=== PATIENT | female | born 1970 | race Caucasian/White ===

== ENCOUNTER 2023-09-05 08:20 | Emergency (ER) | payer OTHER ==
[2023-09-05] MEDS ORDERED: Ondansetron PF 4 MG/2 ML Vial ONE (08:55)
[2023-09-05] MEDS ORDERED: Aspirin Chewable 81 MG TAB ONE (08:55)
[2023-09-05] MEDS ORDERED: Famotidine/PF 20 mg/2ml Vial ONE (08:56)
[2023-09-05 09:31] LABS: #Basophils 0.1 10x3/uL (0.0-0.2); #Eosinphils 0.4 10x3/uL (0.0-0.5); #Monocytes 0.9 10x3/uL (0.0-1.1); #Neutrophils 5.7 10x3/uL (1.5-8.4); %Basophils 0.8 % (0.0-2.0); %Eosinophils 4.3 % (0.0-6.0); %Lymphocytes 23.5 % (18.0-47.0); %Monocytes 9.9 % (0.0-10.0); %Neutrophils 61.3 % (40.0-75.0); Hematocrit 34.5 % (34.9-44.5); Mean Corpuscular Hemoglobin 20.6 pg (27.0-33.0); Mean Corpuscular Volume 71.1 fl (81.6-98.3); Mean Platelet Volume 8.5 fl (7.4-10.4); Platelet Count 455 10x3/uL (150-450); RBC Distribution Width 19.1 % (11.5-14.5); Red Blood Cell (RBC) Count 4.85 10x6/uL (3.90-5.03); White Blood Cell (WBC) Count 9.2 10x3/uL (3.5-10.5)
[2023-09-05 09:47] LABS: ALT (SGPT) 16 U/L (8-55); AST (SGOT) 14 U/L (5-34); Albumin 4.1 g/dL (3.5-5.0); Alkaline Phosphatase 55 U/L (40-110); Anion Gap 15 mmol/L (10-20); BUN (Urea Nitrogen) 12 mg/dL (9.8-20.1); Bilirubin, Total 0.3 mg/dL (0.2-1.2); Calc. Creatinine Clearance 0 mL/min (70-130); Calcium 9.3 mg/dL (7.8-10.44); Carbon Dioxide 22 mmol/L (22-29); Chloride 105 mmol/L (98-107); Estimated GFR 90; Glucose 87 mg/dL (70-105); Potassium 3.7 mmol/L (3.5-5.1); Protein, Total 7.1 g/dL (6.0-8.3); Sodium 138 mmol/L (136-145)
[2023-09-05 09:53] LABS: Troponin I Less than 0.010 ng/mL (< 0.028)
[2023-09-05] MEDS ORDERED: Lorazepam 0.5 MG TAB ONE (10:02)
[2023-09-05 10:10] LABS: SARS-CoV-2 NAA Rapid Test Not Detected (NotDetected)
[2023-09-05 10:20] LABS: BHCG - Serum Negative (NEGATIVE); Pregs Control Background? CLEAR/WHITE (CLR/WHITE); Pregs Control Bar Appear? YES (CONTROL BAR)
[2023-09-05 15:31] LABS: Anisocytosis SLIGHT = 6-15 cells (100X) (0-5/hpf); Hypochromia SLIGHT = 6-15 cells (100X) (0-5/hpf); Microcytosis SLIGHT = 6-15 cells (100X) (0-5/hpf); Poikilocytosis SLIGHT = 6-15 cells (100X) (0-5/hpf); Polychromasia SLIGHT = 2-3 cells (100X) (0-2/hpf)
[2023-09-05 15:32] LABS: Elliptocytes SLIGHT = 2-5 cells (100X) (0-1/hpf)
[2023-09-05 15:33] LABS: Tear Drops SLIGHT = 2-5 cells (100X) (0-1/hpf)
[2023-09-05 15:35] LABS: Platelet Adequacy Comment Appears Increased
== END 2023-09-05 11:33 | disposition home or self-care (01) ==
LOC: CSHERS 08:20
DX: J06.9 Acute upper respiratory infection, unspecified (principal); I50.9 Heart failure, unspecified; Z20.822 Contact with and (suspected) exposure to COVID-19
CPT/HCPCS: 71045; 80053; 83880; 84484; 84703; 85025; 93005; 96374; 96375; J2405; S0028

== ENCOUNTER 2024-10-07 16:36 | Emergency (ER) | payer MEDICAID, OTHER ==
[~2024-10-07 16:36] MED LIST: Iopamidol 300 61% 100 ML VIAL FS ONE
[2024-10-07] MEDS ORDERED: Prochlorperazine 10 MG/2 ML VIAL ONE (17:25)
[2024-10-07] MEDS ORDERED: diphenhydrAMINE 50 MG/ML VIAL ONE (17:25)
[2024-10-07] MEDS ORDERED: Dexamethasone 10 MG/ML VIAL ONE (17:25)
[2024-10-07] MEDS ORDERED: Acetaminophen 325 MG TAB ONE (17:26)
[2024-10-07] MEDS ORDERED: Famotidine/PF 20 mg/2ml Vial ONE (17:26)
[2024-10-07 17:32] LABS: #Basophils 0.07 10x3/uL (0.0-0.2); #Monocytes 0.81 10x3/uL (0.0-1.1); #Neutrophils 6.85 10x3/uL (1.5-8.4); %Basophils 0.7 % (0.0-2.0); %Lymphocytes 19.7 % (18.0-47.0); %Monocytes 8.2 % (0.0-10.0); Hematocrit 39.8 % (34.9-44.5); Mean Corpuscular HGB CONC 30.2 g/dL (32.0-36.0); Mean Platelet Volume 8.4 fL (7.4-10.4); Platelet Count 482 10x3/uL (150-450); RBC Distribution Width 20.5 % (11.5-14.5); Red Blood Cell (RBC) Count 5.45 10x6/uL (3.90-5.03); White Blood Cell (WBC) Count 9.93 10x3/uL (3.5-10.5)
[2024-10-07 17:43] LABS: ALT (SGPT) 26 U/L (8-55); AST (SGOT) 23 U/L (5-34); Albumin 4.1 g/dL (3.5-5.0); Alkaline Phosphatase 67 U/L (40-110); Anion Gap 17 mmol/L (10-20); BUN (Urea Nitrogen) 16 mg/dL (9.8-20.1); Bilirubin, Total 0.2 mg/dL (0.2-1.2); Calc. Creatinine Clearance 0 mL/min (70-130); Calcium 9.7 mg/dL (7.8-10.44); Carbon Dioxide 23 mmol/L (22-29); Chloride 102 mmol/L (98-107); Estimated GFR 57; Glucose 110 mg/dL (70-105); Lipase 32 U/L (8-78); Magnesium 2.1 mg/dL (1.6-2.6); Potassium 3.6 mmol/L (3.5-5.1); Protein, Total 8.1 g/dL (6.0-8.3); Sodium 138 mmol/L (136-145)
[2024-10-07] MEDS ORDERED: Ketorolac Tromethamine 30 MG (1 mL) VIAL ONE (17:48)
[2024-10-07 17:49] LABS: Troponin I Less than 0.010 ng/mL (< 0.028)
== END 2024-10-07 18:55 | disposition home or self-care (01) ==
LOC: CSHERS 16:36
DX: R51.9 Headache, unspecified (principal); R11.2 Nausea with vomiting, unspecified; I11.0 Hypertensive heart disease with heart failure; I50.9 Heart failure, unspecified
CPT/HCPCS: 70450; 74177; 80053; 83690; 83735; 84484; 85025; 93005; 96374; 96375; J0780; J1100; J1200; J1885; J3490; Q9967

== ENCOUNTER 2024-10-21 14:08 | Emergency (ER) | payer OTHER ==
[2024-10-21] MEDS ORDERED: HYDROcodone/Acetaminophen 5/325 mg Tablet ONE (15:08)
== END 2024-10-21 17:05 | disposition home or self-care (01) ==
LOC: CSHERS 14:08
DX: M71.22 Synovial cyst of popliteal space [Baker], left knee (principal); I10 Essential (primary) hypertension